=== PATIENT | male | born 1960 | race Caucasian/White ===

== ENCOUNTER 2016-12-25 12:08 | Inpatient (IN) | payer BC ==
[~2016-12-25] VITALS: Ht 190.5 cm; Wt 117.3 kg
[~2016-12-25 12:08] MED LIST: ASPIRIN81 M1 PO; COLCRYS0.6 MG PO; GLIMEPIRIDE1 MG PO; GLUCOPHAGE500 MG PO; LEVOTHYROXINE75 MCG PO; LOSARTAN POTAS100 MG PO; SIMVASTATIN40 MG PO; ZYLOPRIM50 MG PO
[2016-12-25 12:55] LABS: HEMATOCRIT 40.5 % (38.0-50.0); MCH 28.9 PG (29.0-34.0); MCHC 32.8 G/DL (30.0-36.0); MEAN PLAT.VOLUME 10.4 uM^3 (9.0-12.4); PLATELET COUNT 240 K/uL (156-360); RBC DIS.WIDTH-CV 13.4 % (11.8-14.6); RBC DIS.WIDTH-SD 43.3 % (39-53); WHITE BLOOD COUNT 8.5 K/uL (4.1-10.2)
[2016-12-25 13:02] LABS: CHLORIDE 104 mEq/L (99-109); POTASSIUM 4.1 mEq/L (3.7-5.4); SODIUM 139 mEq/L (136-147)
[2016-12-25 13:04] LABS: GLUCOSE 140 mg/dL (70-99)
[2016-12-25 13:05] LABS: ANION GAP 9 MEQ/L (2-14)
[2016-12-25 13:06] LABS: TOTAL BILIRUBIN 0.5 mg/dL (0.0-1.0)
[2016-12-25 13:07] LABS: ALKALINE PHOSPHATASE 54 IU/L (3-129)
[2016-12-25 13:08] LABS: GFR ESTIMATE (CALCULATED) 52 mL/min/
[2016-12-25 13:09] LABS: UREA NITROGEN (BUN) 18 mg/dL (9-23)
[2016-12-25 14:10] LABS: CREATINE KINASE 54 IU/L (1-294); LIPASE 33 U/L (1.0-51.0)
[2016-12-25 14:10] LABS: ADD MIUA? YES; BILIRUBIN NEGATIVE; BLOOD LARGE; GLUCOSE (STRIP) 1000; KETONES TRACE; LEUKOCYTES TRACE; NITRITE NEGATIVE; PROTEIN (STRIP) 300; UROBILINOGEN 0.2 MG/DL (0.2-1.0)
[2016-12-25 14:11] LABS: COLOR RED ((YELLOW))
[2016-12-25 14:17] LABS: RED BLOOD CELLS TNTC /HPF (0-5)
[2016-12-25 14:18] LABS: EPITHELIAL CELLS RARE /HPF
[2016-12-25 14:19] LABS: BACTERIA 1+ /HPF; MUCUS NONE SEEN /LPF; UCUL ADDED? NO
[2016-12-25] MEDS ORDERED: GLUCOPHAGE1000 MG PO (16:56)
[2016-12-25] MEDS ORDERED: FLONASE16 G1 BOTH NARES (16:58)
[2016-12-25] MEDS ORDERED: ZYRTEC10 M2 PO (16:59)
[2016-12-25 23:06] LABS: POINT-OF-CARE METER ID UU13113702
[2016-12-26 07:39] LABS: POINT-OF-CARE METER ID UU13113702
[2016-12-26 08:22] VITALS: BP 127/83
[2016-12-26 08:59] LABS: HEMATOCRIT 33.9 % (38.0-50.0); MCH 29.2 PG (29.0-34.0); MCHC 33.3 G/DL (30.0-36.0); MCV 87.6 FL (86-99); MEAN PLAT.VOLUME 10.3 uM^3 (9.0-12.4); PLATELET COUNT 196 K/uL (156-360); RBC DIS.WIDTH-CV 13.6 % (11.8-14.6); RBC DIS.WIDTH-SD 42.9 % (39-53); RED BLOOD COUNT 3.87 M/uL (4.00-5.50); WHITE BLOOD COUNT 9.9 K/uL (4.1-10.2)
[2016-12-26 09:09] LABS: ANION GAP 8 MEQ/L (2-14); CHLORIDE 107 MEQ/L (99-109); GFR ESTIMATE (CALCULATED) > 59 mL/min/; GLUCOSE 154 mg/dL (70-99); SAMPLE HEMOLYSIS CHECK 0; SAMPLE ICTERIC CHECK 0; SAMPLE LIPEMIA CHECK 0; SODIUM 138 MEQ/L (136-147); UREA NITROGEN (BUN) 18 mg/dL (9-23)
[2016-12-26 11:01] VITALS: BP 114/72
[2016-12-26 11:28] LABS: POINT-OF-CARE METER ID UU13113807
[2016-12-26 15:02] VITALS: BP 116/70
[2016-12-26 15:34] LABS: POINT-OF-CARE METER ID UU13113807
[2016-12-26 15:38] LABS: BACTERIA RARE /HPF; EPITHELIAL CELLS NONE SEEN /HPF; MUCUS TRACE /LPF; RED BLOOD CELLS TNTC /HPF (0-5); WHITE BLOOD CELLS 15-20 /HPF (0-5)
[2016-12-26 20:00] VITALS: BP 104/71
[2016-12-26 21:59] LABS: POINT-OF-CARE METER ID UU13113807
[2016-12-27] VITALS (7 sets, daily range): BP systolic 117–135; BP diastolic 75–91
[2016-12-27 08:46] LABS: POINT-OF-CARE METER ID UU13113807; POINT-OF-CARE USER ID 606021404
[2016-12-27 11:49] LABS: POINT-OF-CARE METER ID UU13113807; POINT-OF-CARE USER ID 606021404
[2016-12-27 17:27] LABS: POINT-OF-CARE METER ID UU13113807; POINT-OF-CARE USER ID 606021404
[2016-12-27 21:42] LABS: POINT-OF-CARE METER ID UU13113807
[2016-12-28 03:30] VITALS: BP 117/75
[2016-12-28 06:24] LABS: EOSINOPHIL (%) 7.6 % (0-5); EOSINOPHIL COUNT 0.5 K/uL (0-0.3); HEMATOCRIT 33.3 % (38.0-50.0); IMMATURE GRANULOCYTE (%) 0.5 % (0.0-0.7); INSTRUMENT ABS NEUTROPHIL CT 3.2 K/uL; LYMPHOCYTE COUNT 1.6 K/uL (1.0-2.8); MCH 28.8 PG (29.0-34.0); MCHC 32.7 G/DL (30.0-36.0); MCV 88.1 FL (86-99); MEAN PLAT.VOLUME 10.2 uM^3 (9.0-12.4); MONOCYTE (%) 10.5 % (3-12); MONOCYTE COUNT 0.6 K/uL (0-0.8); NEUTROPHIL (%) 54.1 % (45-76); NEUTROPHIL COUNT 3.2 K/uL (1.8-6.4); PLATELET COUNT 207 K/uL (156-360); RBC DIS.WIDTH-CV 13.4 % (11.8-14.6); RED BLOOD COUNT 3.78 M/uL (4.00-5.50)
[2016-12-28 06:37] LABS: ANION GAP 6 MEQ/L (2-14); CHLORIDE 106 MEQ/L (99-109); GFR ESTIMATE (CALCULATED) > 59 mL/min/; GLUCOSE 116 mg/dL (70-99); MAGNESIUM 1.5 mg/dl (1.3-2.7); POTASSIUM 4.1 MEQ/L (3.7-5.4); SAMPLE HEMOLYSIS CHECK 0; SAMPLE ICTERIC CHECK 0; SAMPLE LIPEMIA CHECK 0; SODIUM 138 MEQ/L (136-147); UREA NITROGEN (BUN) 13 mg/dL (9-23)
[2016-12-28 06:44] LABS: WHITE BLOOD COUNT 5.9 K/uL (4.1-10.2)
[2016-12-28 08:44] VITALS: BP 132/95
[2016-12-28 11:35] LABS: POINT-OF-CARE METER ID UU13113807; POINT-OF-CARE USER ID 606021404
[2016-12-28 12:00] VITALS: BP 140/90
[2016-12-28 16:56] VITALS: BP 132/92
[2016-12-28 17:07] LABS: POINT-OF-CARE METER ID UU13113807; POINT-OF-CARE USER ID 606021404
[2016-12-28 20:00] VITALS: BP 135/92
[2016-12-28 21:50] LABS: POINT-OF-CARE METER ID UU13113807
[2016-12-29] VITALS: BP 126/78
[2016-12-29 03:59] VITALS: BP 110/67
[2016-12-29 08:00] VITALS: BP 136/75
[2016-12-29 08:45] LABS: POINT-OF-CARE METER ID UU13113807
[2016-12-29 11:59] VITALS: BP 125/87
[2016-12-29 12:04] LABS: POINT-OF-CARE METER ID UU13113807
[2016-12-29 16:00] VITALS: BP 140/80; BP 150/92
[2016-12-29] MEDS ORDERED: CIPROFLOXACIN500 M1 PO ×2 (16:31→16:56)
[2016-12-29] MEDS ORDERED: METRONIDAZOLE500 MG PO ×2 (16:31→16:56)
[2016-12-29 17:24] LABS: POINT-OF-CARE METER ID UU13113807; POINT-OF-CARE USER ID AHSUCEG
[2016-12-29 17:25] VITALS: BP 132/79
== END 2016-12-29 17:33 | disposition home or self-care (01) | DRG 392 ==
LOC: EME 12:08 → EDOF 16:55 → 4SOUTH 16:55
PROVIDERS: Hospitalist; Internal Medicine; Physician Assistant Surgical; Student in an Organized Health Care Education/Training Program
DX: K57.52 Diverticulitis of both small and large intestine without perforation or abscess without bleeding (principal); N17.9 Acute kidney failure, unspecified; E11.65 Type 2 diabetes mellitus with hyperglycemia; N39.0 Urinary tract infection, site not specified; R31.9 Hematuria, unspecified; I10 Essential (primary) hypertension; E78.5 Hyperlipidemia, unspecified; E03.9 Hypothyroidism, unspecified; K86.9 Disease of pancreas, unspecified; M16.0 Bilateral primary osteoarthritis of hip; E66.9 Obesity, unspecified; K76.0 Fatty (change of) liver, not elsewhere classified
CPT/HCPCS: 74177; 80048; 80053; 81003; 81015; 82550; 82565; 82948; 83690; 83735; 84520; 85025; 85027; 88108; 99281; 99285; J0744; J1644; J1815; J1885; J2270; J7030; J7040; S0030

== ENCOUNTER → 2017-01-28 | Outpatient (CLI) | payer BC ==
[~2017-01-28] VITALS: Ht 190.5 cm; Wt 113.4 kg
[~2017-01-28] MED LIST changes: +CIPRO500 MG PO; +CIPROFLOXACIN500 M1 PO; +FLAGYL500 MG PO; +FLONASE16 G1 BOTH NARES; +GLUCOPHAGE1000 MG PO; +METRONIDAZOLE500 MG PO; +ZANTAC150 MG PO; +ZYRTEC10 M2 PO
[2017-01-28 11:12] LABS: POINT-OF-CARE METER ID UU13113694
[2017-01-28 14:00] LABS: POINT-OF-CARE METER ID UU13113675
== END | disposition home or self-care (01) ==
LOC: AMB 10:22
PROVIDERS: Internal Medicine Gastroenterology
PROC: 0DJ08ZZ Inspection of Upper Intestinal Tract, Via Natural or Artificial Opening Endoscopic (ICD-10-PCS; principal; 2017-01-28)
PROC: 0FBG3ZX Excision of Pancreas, Percutaneous Approach, Diagnostic (ICD-10-PCS; 2017-01-28)
DX: K86.2 Cyst of pancreas (principal); K57.32 Diverticulitis of large intestine without perforation or abscess without bleeding; I10 Essential (primary) hypertension; M1A.9XX0 Chronic gout, unspecified, without tophus (tophi); E11.40 Type 2 diabetes mellitus with diabetic neuropathy, unspecified; K21.9 Gastro-esophageal reflux disease without esophagitis; E78.5 Hyperlipidemia, unspecified; E03.9 Hypothyroidism, unspecified; Z68.32 Body mass index [BMI] 32.0-32.9, adult; E66.9 Obesity, unspecified; Z87.891 Personal history of nicotine dependence; Z79.82 Long term (current) use of aspirin; Z79.4 Long term (current) use of insulin; Z88.0 Allergy status to penicillin
CPT/HCPCS: 82948; 88173; 88305; 93005; J0330; J1100; J2405; J3010

== ENCOUNTER 2017-01-31 18:01 | Emergency (ER) | payer BC ==
[~2017-01-31] VITALS: Ht 190.5 cm; Wt 115.6 kg
[~2017-01-31 18:01] MED LIST changes: -CIPRO500 MG PO; -FLAGYL500 MG PO
[2017-01-31 18:39] LABS: HEMATOCRIT 40.7 % (38.0-50.0); MCHC 33.2 G/DL (30.0-36.0); MCV 87.5 FL (86-99); MEAN PLAT.VOLUME 9.6 uM^3 (9.0-12.4); PLATELET COUNT 338 K/uL (156-360); RBC DIS.WIDTH-CV 13.6 % (11.8-14.6); RBC DIS.WIDTH-SD 43.5 % (39-53); RED BLOOD COUNT 4.65 M/uL (4.00-5.50); WHITE BLOOD COUNT 15.3 K/uL (4.1-10.2)
[2017-01-31 18:50] LABS: CHLORIDE 100 mEq/L (99-109); POTASSIUM 4.4 mEq/L (3.7-5.4); SODIUM 137 mEq/L (136-147)
[2017-01-31 18:53] LABS: GLUCOSE 171 mg/dL (70-99)
[2017-01-31 18:54] LABS: ANION GAP 12 MEQ/L (2-14)
[2017-01-31 18:55] LABS: TOTAL BILIRUBIN 0.7 mg/dL (0.0-1.0)
[2017-01-31 18:56] LABS: ALKALINE PHOSPHATASE 68 IU/L (3-129); GFR ESTIMATE (CALCULATED) 48 mL/min/
[2017-01-31 18:57] LABS: UREA NITROGEN (BUN) 22 mg/dL (9-23)
[2017-01-31 22:15] LABS: ADD MIUA? YES; BILIRUBIN NEGATIVE; BLOOD LARGE; COLOR AMBER ((YELLOW)); GLUCOSE (STRIP) 50; KETONES NEGATIVE; LEUKOCYTES NEGATIVE; NITRITE NEGATIVE; PROTEIN (STRIP) >=500; SPECIFIC GRAVITY 1.015 (1.000-1.030); UROBILINOGEN 0.2 MG/DL (0.2-1.0)
[2017-01-31 22:33] LABS: BACTERIA 1+ /HPF; EPITHELIAL CELLS NONE SEEN /HPF; MUCUS NONE SEEN /LPF; RED BLOOD CELLS TNTC /HPF (0-5); UCUL ADDED? YES; WHITE BLOOD CELLS TNTC /HPF (0-5)
[2017-02-01] MEDS ORDERED: CIPRO500 MG PO (00:52)
[2017-02-01] MEDS ORDERED: FLAGYL500 MG PO (00:52)
[2017-02-01 01:10] VITALS: BP 116/78
== END 2017-02-01 01:12 | disposition home or self-care (01) ==
LOC: EME 18:01
DX: K57.32 Diverticulitis of large intestine without perforation or abscess without bleeding (principal); M54.5 Low back pain; Z98.890 Other specified postprocedural states; Q61.01 Congenital single renal cyst; E03.9 Hypothyroidism, unspecified; E78.5 Hyperlipidemia, unspecified; E11.9 Type 2 diabetes mellitus without complications; Z79.84 Long term (current) use of oral hypoglycemic drugs; Z79.82 Long term (current) use of aspirin; Z87.891 Personal history of nicotine dependence
CPT/HCPCS: 74000; 74176; 80053; 81003; 85027; 87086; 99281; 99284; J1885; J7030

== ENCOUNTER 2017-04-07 06:23 | Inpatient (IN) | payer BC ==
[~2017-04-07] VITALS: Ht 193 cm; Wt 112.5 kg
[~2017-04-07 06:23] MED LIST changes: +AMARYL1 MG PO; +CIPRO500 MG PO; +FLAGYL500 MG PO; +LEVO-T100 MCG PO
[2017-04-07 06:50] VITALS: BP 119/92
[2017-04-07 07:13] LABS: POINT-OF-CARE METER ID UU13113694
[2017-04-07 13:43] LABS: POINT-OF-CARE METER ID UU13113675; POINT-OF-CARE USER ID ADMKMM76
[2017-04-07 16:11] VITALS: BP 142/88
[2017-04-07 16:13] LABS: POINT-OF-CARE METER ID UU13113725
[2017-04-07 20:46] VITALS: BP 135/86
[2017-04-07 21:39] LABS: POINT-OF-CARE METER ID UU13113725
[2017-04-08 01:27] VITALS: BP 124/75
[2017-04-08 03:49] VITALS: BP 108/73
[2017-04-08 07:03] LABS: EOSINOPHIL (%) 0.2 % (0-5); HEMATOCRIT 31.9 % (38.0-50.0); IMMATURE GRANULOCYTE (%) 0.4 % (0.0-0.7); INSTRUMENT ABS NEUTROPHIL CT 8.6 K/uL; LYMPHOCYTE COUNT 0.9 K/uL (1.0-2.8); MCH 29.1 PG (29.0-34.0); MCHC 33.2 G/DL (30.0-36.0); MCV 87.6 FL (86-99); MEAN PLAT.VOLUME 10.1 uM^3 (9.0-12.4); MONOCYTE (%) 6.8 % (3-12); MONOCYTE COUNT 0.7 K/uL (0-0.8); NEUTROPHIL (%) 83.4 % (45-76); NEUTROPHIL COUNT 8.6 K/uL (1.8-6.4); PLATELET COUNT 250 K/uL (156-360); RBC DIS.WIDTH-CV 13.5 % (11.8-14.6); RBC DIS.WIDTH-SD 43.3 % (39-53); RED BLOOD COUNT 3.64 M/uL (4.00-5.50); WHITE BLOOD COUNT 10.3 K/uL (4.1-10.2)
[2017-04-08 07:08] VITALS: BP 145/87
[2017-04-08 07:24] LABS: ALKALINE PHOSPHATASE 49 IU/L (3-129); ANION GAP 8 MEQ/L (2-14); CHLORIDE 102 MEQ/L (99-109); GFR ESTIMATE (CALCULATED) > 59 mL/min/; GLUCOSE 169 mg/dL (70-99); MAGNESIUM 1.4 mg/dl (1.3-2.7); POTASSIUM 3.9 MEQ/L (3.7-5.4); SAMPLE HEMOLYSIS CHECK 0; SAMPLE ICTERIC CHECK 0; SAMPLE LIPEMIA CHECK 0; SODIUM 136 MEQ/L (136-147); TOTAL BILIRUBIN 0.7 MG/DL (0.0-1.0); UREA NITROGEN (BUN) 10 mg/dL (9-23)
[2017-04-08 11:29] LABS: POINT-OF-CARE METER ID UU13113725
[2017-04-08 16:35] VITALS: BP 122/77
[2017-04-08 19:20] VITALS: BP 151/81
[2017-04-08 20:48] LABS: POINT-OF-CARE METER ID UU13113725
[2017-04-08 23:10] VITALS: BP 129/85
[2017-04-09 03:23] VITALS: BP 141/81
[2017-04-09 05:43] LABS: POINT-OF-CARE METER ID UU13113725
[2017-04-09 07:00] VITALS: BP 146/90
[2017-04-09] MEDS ORDERED: HYDROCODON-ACE1 EAC7 PO (09:57)
[2017-04-09] MEDS ORDERED: COLACE100 MG PO (09:57)
[2017-04-09 10:45] LABS: ADD MIUA? YES; BILIRUBIN NEGATIVE; BLOOD LARGE; COLOR YELLOW ((YELLOW)); GLUCOSE (STRIP) 150; KETONES NEGATIVE; LEUKOCYTES NEGATIVE; NITRITE NEGATIVE; PROTEIN (STRIP) 30; SPECIFIC GRAVITY 1.002 (1.000-1.030); UROBILINOGEN 0.2 MG/DL (0.2-1.0)
[2017-04-09 10:49] LABS: EOSINOPHIL (%) 0.2 % (0-5); HEMATOCRIT 32.7 % (38.0-50.0); IMMATURE GRANULOCYTE (%) 0.5 % (0.0-0.7); IMMATURE GRANULOCYTE COUNT 0.1 K/uL; INSTRUMENT ABS NEUTROPHIL CT 14.2 K/uL; LYMPHOCYTE COUNT 1.4 K/uL (1.0-2.8); MCH 29.8 PG (29.0-34.0); MCHC 33.9 G/DL (30.0-36.0); MCV 87.9 FL (86-99); MEAN PLAT.VOLUME 10.1 uM^3 (9.0-12.4); MONOCYTE (%) 4.7 % (3-12); MONOCYTE COUNT 0.8 K/uL (0-0.8); NEUTROPHIL (%) 86.1 % (45-76); NEUTROPHIL COUNT 14.2 K/uL (1.8-6.4); PLATELET COUNT 269 K/uL (156-360); RBC DIS.WIDTH-CV 13.7 % (11.8-14.6); RBC DIS.WIDTH-SD 44.1 % (39-53); RED BLOOD COUNT 3.72 M/uL (4.00-5.50); WHITE BLOOD COUNT 16.5 K/uL (4.1-10.2)
[2017-04-09 10:52] LABS: ALKALINE PHOSPHATASE 55 IU/L (3-129); ANION GAP 9 MEQ/L (2-14); CHLORIDE 98 MEQ/L (99-109); GFR ESTIMATE (CALCULATED) > 59 mL/min/; MAGNESIUM 1.6 mg/dl (1.3-2.7); POTASSIUM 3.6 MEQ/L (3.7-5.4); SAMPLE HEMOLYSIS CHECK 0; SAMPLE ICTERIC CHECK 0; SAMPLE LIPEMIA CHECK 0; SODIUM 136 MEQ/L (136-147); TOTAL BILIRUBIN 0.8 MG/DL (0.0-1.0); UREA NITROGEN (BUN) 11 mg/dL (9-23)
[2017-04-09 10:54] LABS: BACTERIA 1+ /HPF; EPITHELIAL CELLS NONE SEEN /HPF; MUCUS TRACE /LPF; RED BLOOD CELLS 0-5 /HPF (0-5); UCUL ADDED? NO; WHITE BLOOD CELLS 0-5 /HPF (0-5)
[2017-04-09 11:04] LABS: GLUCOSE 109 mg/dL (70-99)
[2017-04-09 17:25] VITALS: BP 156/84
[2017-04-09 18:56] LABS: BASOPHIL COUNT 0.1 K/uL (0-0.1); EOSINOPHIL COUNT 0.2 K/uL (0-0.3); HEMATOCRIT 29.5 % (38.0-50.0); IMMATURE GRANULOCYTE (%) 0.5 % (0.0-0.7); IMMATURE GRANULOCYTE COUNT 0.1 K/uL; LYMPHOCYTE COUNT 1.9 K/uL (1.0-2.8); MCH 30.3 PG (29.0-34.0); MCHC 35.3 G/DL (30.0-36.0); MONOCYTE (%) 6.3 % (3-12); NEUTROPHIL (%) 79.9 % (45-76); PLATELET COUNT 253 K/uL (156-360); RBC DIS.WIDTH-CV 13.5 % (11.8-14.6); RBC DIS.WIDTH-SD 42.1 % (39-53); RED BLOOD COUNT 3.43 M/uL (4.00-5.50); WHITE BLOOD COUNT 16.2 K/uL (4.1-10.2)
[2017-04-09 22:23] VITALS: BP 135/83
[2017-04-10 05:53] LABS: POINT-OF-CARE METER ID UU13113725
[2017-04-10 06:10] LABS: EOSINOPHIL COUNT 0.3 K/uL (0-0.3); HEMATOCRIT 27.5 % (38.0-50.0); IMMATURE GRANULOCYTE (%) 0.5 % (0.0-0.7); IMMATURE GRANULOCYTE COUNT 0.1 K/uL; INSTRUMENT ABS NEUTROPHIL CT 10.6 K/uL; LYMPHOCYTE COUNT 1.3 K/uL (1.0-2.8); MCH 30.1 PG (29.0-34.0); MCHC 34.5 G/DL (30.0-36.0); MEAN PLAT.VOLUME 10.2 uM^3 (9.0-12.4); MONOCYTE (%) 6.7 % (3-12); MONOCYTE COUNT 0.9 K/uL (0-0.8); NEUTROPHIL (%) 80.5 % (45-76); NEUTROPHIL COUNT 10.6 K/uL (1.8-6.4); PLATELET COUNT 260 K/uL (156-360); RBC DIS.WIDTH-CV 13.4 % (11.8-14.6); RBC DIS.WIDTH-SD 42.5 % (39-53); RED BLOOD COUNT 3.16 M/uL (4.00-5.50); WHITE BLOOD COUNT 13.2 K/uL (4.1-10.2)
[2017-04-10 06:43] LABS: ALKALINE PHOSPHATASE 51 IU/L (3-129); ANION GAP 8 MEQ/L (2-14); CHLORIDE 101 MEQ/L (99-109); GFR ESTIMATE (CALCULATED) > 59 mL/min/; GLUCOSE 122 mg/dL (70-99); MAGNESIUM 1.5 mg/dl (1.3-2.7); POTASSIUM 3.7 MEQ/L (3.7-5.4); SAMPLE HEMOLYSIS CHECK 0; SAMPLE ICTERIC CHECK 0; SAMPLE LIPEMIA CHECK 0; SODIUM 137 MEQ/L (136-147); UREA NITROGEN (BUN) 12 mg/dL (9-23)
[2017-04-10 06:44] LABS: TOTAL BILIRUBIN 0.6 MG/DL (0.0-1.0)
[2017-04-10 07:56] VITALS: BP 136/87
[2017-04-10 15:39] VITALS: BP 120/81
[2017-04-10 15:45] LABS: POINT-OF-CARE METER ID UU13113725
[2017-04-10 22:22] VITALS: BP 137/83
[2017-04-11 06:37] VITALS: BP 146/94
[2017-04-11 07:09] LABS: EOSINOPHIL (%) 5.6 % (0-5); EOSINOPHIL COUNT 0.6 K/uL (0-0.3); HEMATOCRIT 28.8 % (38.0-50.0); IMMATURE GRANULOCYTE (%) 0.7 % (0.0-0.7); IMMATURE GRANULOCYTE COUNT 0.1 K/uL; INSTRUMENT ABS NEUTROPHIL CT 7.6 K/uL; LYMPHOCYTE COUNT 1.2 K/uL (1.0-2.8); MCH 28.8 PG (29.0-34.0); MCV 87.3 FL (86-99); MONOCYTE (%) 8.6 % (3-12); MONOCYTE COUNT 0.9 K/uL (0-0.8); NEUTROPHIL (%) 73.6 % (45-76); NEUTROPHIL COUNT 7.6 K/uL (1.8-6.4); PLATELET COUNT 307 K/uL (156-360); RBC DIS.WIDTH-CV 13.4 % (11.8-14.6); RBC DIS.WIDTH-SD 42.6 % (39-53); WHITE BLOOD COUNT 10.3 K/uL (4.1-10.2)
[2017-04-11 07:36] LABS: ANION GAP 10 MEQ/L (2-14); CHLORIDE 103 MEQ/L (99-109); GFR ESTIMATE (CALCULATED) > 59 mL/min/; MAGNESIUM 1.5 mg/dl (1.3-2.7); POTASSIUM 3.5 MEQ/L (3.7-5.4); SAMPLE HEMOLYSIS CHECK 0; SAMPLE ICTERIC CHECK 0; SAMPLE LIPEMIA CHECK 0; SODIUM 140 MEQ/L (136-147); UREA NITROGEN (BUN) 11 mg/dL (9-23)
[2017-04-11 07:40] LABS: GLUCOSE 91 mg/dL (70-99)
[2017-04-11 15:14] VITALS: BP 140/88
[2017-04-11 16:02] LABS: POINT-OF-CARE METER ID UU13113725
[2017-04-11 20:30] VITALS: BP 148/62
[2017-04-11 20:54] LABS: POINT-OF-CARE METER ID UU13113725
[2017-04-11 22:47] VITALS: BP 124/65
[2017-04-12 02:35] VITALS: BP 119/80
[2017-04-12 05:35] LABS: POINT-OF-CARE METER ID UU13113725
[2017-04-12 06:44] VITALS: BP 141/90
[2017-04-12 11:01] VITALS: BP 154/95
[2017-04-12 15:00] VITALS: BP 128/87
[2017-04-12 19:02] VITALS: BP 132/87
[2017-04-12 23:00] VITALS: BP 141/93
[2017-04-13 06:05] LABS: POINT-OF-CARE METER ID UU13113725
[2017-04-13 06:55] VITALS: BP 140/88
[2017-04-13 10:27] LABS: HEMATOCRIT 28.6 % (38.0-50.0); MCH 29.4 PG (29.0-34.0); MCHC 33.9 G/DL (30.0-36.0); MCV 86.7 FL (86-99); MEAN PLAT.VOLUME 9.1 uM^3 (9.0-12.4); PLATELET COUNT 341 K/uL (156-360); RBC DIS.WIDTH-CV 13.2 % (11.8-14.6); RBC DIS.WIDTH-SD 42.4 % (39-53); WHITE BLOOD COUNT 7.5 K/uL (4.1-10.2)
[2017-04-13 11:02] LABS: ANION GAP 9 MEQ/L (2-14); CHLORIDE 104 MEQ/L (99-109); GFR ESTIMATE (CALCULATED) 56 mL/min/; GLUCOSE 130 mg/dL (70-99); POTASSIUM 3.4 MEQ/L (3.7-5.4); SAMPLE HEMOLYSIS CHECK 0; SAMPLE ICTERIC CHECK 0; SAMPLE LIPEMIA CHECK 0; SODIUM 141 MEQ/L (136-147); UREA NITROGEN (BUN) 16 mg/dL (9-23)
[2017-04-13 11:04] LABS: POC NON-PRINT COM 1 ND
[2017-04-13] MEDS ORDERED: NORCO 5/3251 TABLET PO (11:18)
[2017-04-13 11:21] LABS: POINT-OF-CARE METER ID UU13113725
== END 2017-04-13 14:38 | disposition home or self-care (01) | DRG 331 ==
LOC: 2SOUTH 06:23 → SDC 13:48 → EDSTATUS 13:48 → 2SOUTH 13:49 → 5EAST 15:14 → 2SOUTH 15:25 → 5EAST 04-13 14:38
PROVIDERS: Surgery
DX: K57.32 Diverticulitis of large intestine without perforation or abscess without bleeding (principal); N18.3 Chronic kidney disease, stage 3 (moderate); K63.9 Disease of intestine, unspecified; E78.5 Hyperlipidemia, unspecified; E11.40 Type 2 diabetes mellitus with diabetic neuropathy, unspecified; M51.36 Other intervertebral disc degeneration, lumbar region; E03.9 Hypothyroidism, unspecified; E11.22 Type 2 diabetes mellitus with diabetic chronic kidney disease; I12.9 Hypertensive chronic kidney disease with stage 1 through stage 4 chronic kidney disease, or unspecified chronic kidney disease; G89.29 Other chronic pain; K21.9 Gastro-esophageal reflux disease without esophagitis; R31.0 Gross hematuria; L50.3 Dermatographic urticaria; M54.17 Radiculopathy, lumbosacral region; M77.12 Lateral epicondylitis, left elbow; H69.80 Other specified disorders of Eustachian tube, unspecified ear; L30.9 Dermatitis, unspecified; K42.9 Umbilical hernia without obstruction or gangrene; J30.9 Allergic rhinitis, unspecified; K76.0 Fatty (change of) liver, not elsewhere classified; R31.9 Hematuria, unspecified; L50.9 Urticaria, unspecified; M65.841 Other synovitis and tenosynovitis, right hand; M16.0 Bilateral primary osteoarthritis of hip; E66.9 Obesity, unspecified; M1A.9XX0 Chronic gout, unspecified, without tophus (tophi); E11.21 Type 2 diabetes mellitus with diabetic nephropathy; I34.1 Nonrheumatic mitral (valve) prolapse; Z68.30 Body mass index [BMI] 30.0-30.9, adult; Z86.010 Personal history of colon polyps; Z87.891 Personal history of nicotine dependence; Z79.84 Long term (current) use of oral hypoglycemic drugs; Z88.0 Allergy status to penicillin; Z82.49 Family history of ischemic heart disease and other diseases of the circulatory system; Z83.3 Family history of diabetes mellitus; Z82.61 Family history of arthritis
CPT/HCPCS: 71020; 76770; 80048; 80053; 81003; 82272; 82948; 83735; 84100; 85025; 85025 91; 85027; 88305; 88307; J0330; J0744; J1170; J1650; J1815; J2405; J2710; J2765; J3010; J7040; J7120; S0030

== ENCOUNTER 2017-05-02 15:53 | Inpatient (IN) | payer BC ==
[~2017-05-02] VITALS: Ht 190.5 cm; Wt 121.0 kg
[~2017-05-02 15:53] MED LIST changes: +COLACE100 MG PO; +HYDROCODON-ACE1 EAC7 PO; +NORCO 5/3251 TABLET PO
[2017-05-02 17:21] LABS: HEMATOCRIT 31.3 % (38.0-50.0); MCH 27.9 PG (29.0-34.0); MCHC 33.2 G/DL (30.0-36.0); MCV 83.9 FL (86-99); PLATELET COUNT 413 K/uL (156-360); RBC DIS.WIDTH-CV 13.1 % (11.8-14.6); RBC DIS.WIDTH-SD 40.4 % (39-53); RED BLOOD COUNT 3.73 M/uL (4.00-5.50); WHITE BLOOD COUNT 12.6 K/uL (4.1-10.2)
[2017-05-02 17:37] LABS: CHLORIDE 101 mEq/L (99-109); POTASSIUM 4.2 mEq/L (3.7-5.4); SODIUM 133 mEq/L (136-147)
[2017-05-02 17:38] LABS: GLUCOSE 119 mg/dL (70-99)
[2017-05-02 17:40] LABS: ANION GAP 12 MEQ/L (2-14)
[2017-05-02 17:42] LABS: GFR ESTIMATE (CALCULATED) 33 mL/min/
[2017-05-02 17:43] LABS: UREA NITROGEN (BUN) 23 mg/dL (9-23)
[2017-05-02] MEDS ORDERED: BENZONATATE100 MG PO (22:55)
[2017-05-02] MEDS ORDERED: VENTOLIN HFA18 GM IH (22:56)
[2017-05-02 23:38] LABS: ADD MIUA? YES; BILIRUBIN NEGATIVE; BLOOD LARGE; COLOR AMBER ((YELLOW)); GLUCOSE (STRIP) NEGATIVE; KETONES NEGATIVE; LEUKOCYTES NEGATIVE; NITRITE NEGATIVE; PROTEIN (STRIP) 100; SPECIFIC GRAVITY 1.021 (1.000-1.030); UROBILINOGEN 0.2 MG/DL (0.2-1.0)
[2017-05-02 23:47] VITALS: BP 131/70
[2017-05-02 23:54] LABS: AMORPHOUS URATES CRYSTALS 2+; BACTERIA 2+ /HPF; CASTS PRESENT /LPF; CRYSTALS PRESENT; EPITHELIAL CELLS 1+ /HPF; FINE GRANULAR CASTS 0-5 /LPF; MUCUS 2+ /LPF; RED BLOOD CELLS 20-30 /HPF (0-5); UCUL ADDED? YES
[2017-05-03] VITALS: BP 131/70
[2017-05-03 00:27] LABS: POINT-OF-CARE METER ID UU13113725
[2017-05-03 03:51] VITALS: BP 97/61
[2017-05-03 06:13] LABS: POINT-OF-CARE METER ID UU13113725
[2017-05-03 07:46] VITALS: BP 96/54
[2017-05-03 09:54] LABS: ANION GAP 11 MEQ/L (2-14); CHLORIDE 105 MEQ/L (99-109); MAGNESIUM 1.5 mg/dl (1.3-2.7); POTASSIUM 3.9 MEQ/L (3.7-5.4); SAMPLE HEMOLYSIS CHECK 0; SAMPLE ICTERIC CHECK 0; SAMPLE LIPEMIA CHECK 0; SODIUM 138 MEQ/L (136-147); TOTAL BILIRUBIN 0.6 MG/DL (0.0-1.0)
[2017-05-03 09:59] LABS: ALKALINE PHOSPHATASE 62 IU/L (3-129); GFR ESTIMATE (CALCULATED) 37 mL/min/; GLUCOSE 92 mg/dL (70-99); UREA NITROGEN (BUN) 24 mg/dL (9-23)
[2017-05-03 10:07] LABS: EOSINOPHIL (%) 1.8 % (0-5); EOSINOPHIL COUNT 0.2 K/uL (0-0.3); HEMATOCRIT 25.1 % (38.0-50.0); IMMATURE GRANULOCYTE (%) 2.4 % (0.0-0.7); IMMATURE GRANULOCYTE COUNT 0.2 K/uL; INSTRUMENT ABS NEUTROPHIL CT 6.9 K/uL; LYMPHOCYTE COUNT 1.2 K/uL (1.0-2.8); MCH 28.6 PG (29.0-34.0); MCHC 33.5 G/DL (30.0-36.0); MCV 85.4 FL (86-99); MONOCYTE (%) 13.9 % (3-12); MONOCYTE COUNT 1.4 K/uL (0-0.8); NEUTROPHIL (%) 69.2 % (45-76); NEUTROPHIL COUNT 6.9 K/uL (1.8-6.4); RBC DIS.WIDTH-CV 13.3 % (11.8-14.6); RBC DIS.WIDTH-SD 41.5 % (39-53)
[2017-05-03 10:09] LABS: RED BLOOD COUNT 2.94 M/uL (4.00-5.50)
[2017-05-03 10:12] LABS: MEAN PLAT.VOLUME 9.2 uM^3 (9.0-12.4); PLAT.SUFFICIENCY ADEQUATE
[2017-05-03 10:20] LABS: PLATELET COUNT 278 K/uL (156-360)
[2017-05-03 11:39] LABS: POINT-OF-CARE METER ID UU13113725
[2017-05-03 12:58] VITALS: BP 101/78
[2017-05-03 17:27] LABS: POINT-OF-CARE METER ID UU13113675
[2017-05-03 19:43] LABS: HEMATOCRIT 26.6 % (38.0-50.0); MCV 88.1 FL (86-99)
[2017-05-03 22:15] VITALS: BP 127/71
[2017-05-03 23:00] VITALS: BP 100/60
[2017-05-03 23:22] LABS: METH RESISTANT S AUREUS PCR NEGATIVE (NEGATIVE)
[2017-05-03 23:24] LABS: PROBE CHECK PASS; SPECIMEN PROCESSING CONTROL PASS
[2017-05-03 23:39] LABS: TROP-I INTERPRETATION INDETERMINATE; TROPONIN-I 0.47 ng/mL (0.0-0.30)
[2017-05-03 23:54] LABS: POINT-OF-CARE METER ID UU14208751
[2017-05-04] VITALS (13 sets, daily range): BP systolic 79–121; BP diastolic 43–82
[2017-05-04 00:48] LABS: BASE EXCESS -8.1 mEq/L (-3 to +3); BICARBONATE 15.7 mEq/L (22-26); CARBOXY HGB 1.7 % (0-5); METHEMOGLOBIN 1.5 % (0-1.5); PCO2 26 mm Hg (35-45); PO2 82 mm Hg (80-100); pH 7.39 (7.35-7.45)
[2017-05-04 00:49] LABS: COMMENTS - BLOOD GASES C+; DEVICE NC; O2 FLOW 3.5 L/MIN; SITE RR ALINE
[2017-05-04 02:53] LABS: CARBON DIOXIDE (BICARBONATE) 16.2 MEQ/L (20-31)
[2017-05-04 05:42] LABS: TROP-I INTERPRETATION INDETERMINATE; TROPONIN-I 0.35 ng/mL (0.0-0.30)
[2017-05-04 05:43] LABS: MCH 29.1 PG (29.0-34.0); MCHC 33.7 G/DL (30.0-36.0); MCV 86.3 FL (86-99); MEAN PLAT.VOLUME 9.3 uM^3 (9.0-12.4); PLATELET COUNT 301 K/uL (156-360); RBC DIS.WIDTH-CV 13.7 % (11.8-14.6); RBC DIS.WIDTH-SD 43.5 % (39-53); RED BLOOD COUNT 3.13 M/uL (4.00-5.50); WHITE BLOOD COUNT 11.5 K/uL (4.1-10.2)
[2017-05-04 06:30] LABS: BASE EXCESS -8.2 mEq/L (-3 to +3); BICARBONATE 16.9 mEq/L (22-26); METHEMOGLOBIN 2.1 % (0-1.5); PCO2 32 mm Hg (35-45); PO2 31 mm Hg (80-100); pH 7.33 (7.35-7.45)
[2017-05-04 06:31] LABS: COMMENTS - BLOOD GASES C+; DEVICE NC; SITE CENTLINE
[2017-05-04 06:36] LABS: ANION GAP 8 MEQ/L (2-14); CHLORIDE 112 MEQ/L (99-109); GFR ESTIMATE (CALCULATED) 35 mL/min/; SAMPLE HEMOLYSIS CHECK 0; SAMPLE ICTERIC CHECK 0; SAMPLE LIPEMIA CHECK 0; SODIUM 137 MEQ/L (136-147); UREA NITROGEN (BUN) 21 mg/dL (9-23)
[2017-05-04 06:40] LABS: GLUCOSE 170 mg/dL (70-99); POTASSIUM 4.7 MEQ/L (3.7-5.4)
[2017-05-04 07:57] LABS: POINT-OF-CARE METER ID UU13113731
[2017-05-04 12:06] LABS: POINT-OF-CARE METER ID UU13113731
[2017-05-04 14:41] LABS: ANION GAP 8 MEQ/L (2-14); CHLORIDE 111 MEQ/L (99-109); GFR ESTIMATE (CALCULATED) 37 mL/min/; GLUCOSE 200 mg/dL (70-99); POTASSIUM 4.7 MEQ/L (3.7-5.4); SAMPLE HEMOLYSIS CHECK 0; SAMPLE ICTERIC CHECK 0; SAMPLE LIPEMIA CHECK 0; SODIUM 134 MEQ/L (136-147); UREA NITROGEN (BUN) 24 mg/dL (9-23)
[2017-05-04 14:43] LABS: TROP-I INTERPRETATION NEGATIVE; TROPONIN-I 0.15 ng/mL (0.0-0.30)
[2017-05-04 17:23] LABS: POINT-OF-CARE METER ID UU14174217
[2017-05-04 21:51] LABS: POINT-OF-CARE METER ID UU14208751
[2017-05-05] VITALS (19 sets, daily range): BP systolic 82–148; BP diastolic 47–96
[2017-05-05 08:29] LABS: POINT-OF-CARE METER ID UU14162636
[2017-05-05 09:45] LABS: HEMATOCRIT 26.8 % (38.0-50.0); MCH 27.4 PG (29.0-34.0); MCHC 31.3 G/DL (30.0-36.0); MCV 87.3 FL (86-99); MEAN PLAT.VOLUME 9.1 uM^3 (9.0-12.4); PLATELET COUNT 364 K/uL (156-360); RBC DIS.WIDTH-SD 45.1 % (39-53); RED BLOOD COUNT 3.07 M/uL (4.00-5.50); WHITE BLOOD COUNT 19.3 K/uL (4.1-10.2)
[2017-05-05 10:09] LABS: ALKALINE PHOSPHATASE 49 IU/L (3-129); ANION GAP 10 MEQ/L (2-14); CHLORIDE 109 MEQ/L (99-109); GFR ESTIMATE (CALCULATED) 33 mL/min/; GLUCOSE 147 mg/dL (70-99); POTASSIUM 4.7 MEQ/L (3.7-5.4); SAMPLE HEMOLYSIS CHECK 0; SAMPLE ICTERIC CHECK 0; SAMPLE LIPEMIA CHECK 0; SODIUM 136 MEQ/L (136-147); UREA NITROGEN (BUN) 33 mg/dL (9-23)
[2017-05-05 10:13] LABS: MAGNESIUM 1.9 mg/dl (1.3-2.7); TOTAL BILIRUBIN 1.2 MG/DL (0.0-1.0)
[2017-05-05 10:26] LABS: EOSINOPHIL (%) 0.1 % (0-5); IMMATURE GRANULOCYTE (%) 2.4 % (0.0-0.7); IMMATURE GRANULOCYTE COUNT 0.5 K/uL; INSTRUMENT ABS NEUTROPHIL CT 17.6 K/uL; LYMPHOCYTE COUNT 0.7 K/uL (1.0-2.8); MONOCYTE (%) 2.5 % (3-12); MONOCYTE COUNT 0.5 K/uL (0-0.8); NEUTROPHIL (%) 91.3 % (45-76); NEUTROPHIL COUNT 17.6 K/uL (1.8-6.4)
[2017-05-05 11:37] LABS: POINT-OF-CARE METER ID UU14162636
[2017-05-05 16:07] LABS: POINT-OF-CARE METER ID UU14162636
[2017-05-05 21:03] LABS: ADD MIUA? YES; BILIRUBIN NEGATIVE; BLOOD LARGE; COLOR AMBER ((YELLOW)); GLUCOSE (STRIP) 50; KETONES NEGATIVE; LEUKOCYTES TRACE; NITRITE NEGATIVE; PROTEIN (STRIP) 100; SPECIFIC GRAVITY 1.017 (1.000-1.030); UROBILINOGEN 0.2 MG/DL (0.2-1.0)
[2017-05-05 21:29] LABS: BACTERIA RARE /HPF; EPITHELIAL CELLS RARE /HPF; HYALINE CASTS 0-5 /LPF; MUCUS TRACE /LPF; RED BLOOD CELLS 30-40 /HPF (0-5); UNCLASSIFIED CRYSTALS 1+ /HPF; WHITE BLOOD CELLS 0-5 /HPF (0-5)
[2017-05-05 22:20] LABS: POINT-OF-CARE METER ID UU14162636
[2017-05-06] VITALS (7 sets, daily range): BP systolic 120–154; BP diastolic 83–103
[2017-05-06 09:30] LABS: EOSINOPHIL (%) 0.3 % (0-5); IMMATURE GRANULOCYTE (%) 4.4 % (0.0-0.7); IMMATURE GRANULOCYTE COUNT 0.6 K/uL; INSTRUMENT ABS NEUTROPHIL CT 11.7 K/uL; LYMPHOCYTE COUNT 0.7 K/uL (1.0-2.8); MCH 28.7 PG (29.0-34.0); MCV 86.8 FL (86-99); MONOCYTE (%) 3.7 % (3-12); MONOCYTE COUNT 0.5 K/uL (0-0.8); NEUTROPHIL (%) 86.5 % (45-76); NEUTROPHIL COUNT 11.7 K/uL (1.8-6.4); PLATELET COUNT 283 K/uL (156-360); RBC DIS.WIDTH-CV 14.4 % (11.8-14.6); RBC DIS.WIDTH-SD 45.5 % (39-53); RED BLOOD COUNT 2.65 M/uL (4.00-5.50); WHITE BLOOD COUNT 13.5 K/uL (4.1-10.2)
[2017-05-06 09:45] LABS: POINT-OF-CARE METER ID UU13113748
[2017-05-06 10:09] LABS: ALKALINE PHOSPHATASE 55 IU/L (3-129); ANION GAP 11 MEQ/L (2-14); CHLORIDE 109 MEQ/L (99-109); DIRECT BILIRUBIN 1.1 mg/dL (0.0-0.3); GLUCOSE 128 mg/dL (70-99); POTASSIUM 4.2 MEQ/L (3.7-5.4); SAMPLE HEMOLYSIS CHECK 0; SAMPLE ICTERIC CHECK 0; SAMPLE LIPEMIA CHECK 0; SODIUM 138 MEQ/L (136-147); UREA NITROGEN (BUN) 28 mg/dL (9-23)
[2017-05-06 10:13] LABS: GFR ESTIMATE (CALCULATED) 45 mL/min/; TOTAL BILIRUBIN 1.6 MG/DL (0.0-1.0)
[2017-05-06 12:04] LABS: POINT-OF-CARE METER ID UU13113748
[2017-05-06 18:25] LABS: POINT-OF-CARE METER ID UU13113731
[2017-05-06 21:29] LABS: ANION GAP 9 MEQ/L (2-14); CHLORIDE 110 MEQ/L (99-109); POTASSIUM 3.9 MEQ/L (3.7-5.4); SAMPLE HEMOLYSIS CHECK 0; SAMPLE ICTERIC CHECK 0; SAMPLE LIPEMIA CHECK 0; SODIUM 136 MEQ/L (136-147)
[2017-05-06 21:35] LABS: GFR ESTIMATE (CALCULATED) 48 mL/min/; GLUCOSE 102 mg/dL (70-99); UREA NITROGEN (BUN) 26 mg/dL (9-23)
[2017-05-06 22:10] LABS: POINT-OF-CARE METER ID UU13113731
[2017-05-07] VITALS (8 sets, daily range): BP systolic 106–134; BP diastolic 67–92
[2017-05-07 04:45] LABS: HEMATOCRIT 24.7 % (38.0-50.0); MCH 27.9 PG (29.0-34.0); MCHC 33.2 G/DL (30.0-36.0); MEAN PLAT.VOLUME 9.2 uM^3 (9.0-12.4); PLATELET COUNT 322 K/uL (156-360); RBC DIS.WIDTH-CV 14.1 % (11.8-14.6); RBC DIS.WIDTH-SD 43.1 % (39-53); RED BLOOD COUNT 2.94 M/uL (4.00-5.50); WHITE BLOOD COUNT 13.4 K/uL (4.1-10.2)
[2017-05-07 07:42] LABS: EOSINOPHIL (%) 1.4 % (0-5); EOSINOPHIL COUNT 0.2 K/uL (0-0.3); HEMATOLOGY COMMENT 1 SMEAR COMPATIBLE; IMMATURE GRANULOCYTE (%) 3.9 % (0.0-0.7); IMMATURE GRANULOCYTE COUNT 0.5 K/uL; MONOCYTE (%) 5.7 % (3-12); MONOCYTE COUNT 0.8 K/uL (0-0.8); NEUTROPHIL (%) 81.8 % (45-76)
[2017-05-07 08:30] LABS: ANION GAP 9 MEQ/L (2-14); CHLORIDE 107 MEQ/L (99-109); GFR ESTIMATE (CALCULATED) 45 mL/min/; GLUCOSE 94 mg/dL (70-99); MAGNESIUM 1.7 mg/dl (1.3-2.7); POTASSIUM 3.7 MEQ/L (3.7-5.4); SAMPLE HEMOLYSIS CHECK 0; SAMPLE ICTERIC CHECK 0; SAMPLE LIPEMIA CHECK 0; SODIUM 135 MEQ/L (136-147); UREA NITROGEN (BUN) 25 mg/dL (9-23)
[2017-05-07 08:37] LABS: ALKALINE PHOSPHATASE 86 IU/L (3-129); TOTAL BILIRUBIN 1.2 MG/DL (0.0-1.0)
[2017-05-07 09:11] LABS: POINT-OF-CARE METER ID UU13113731
[2017-05-07 11:53] LABS: POINT-OF-CARE METER ID UU13113731
[2017-05-07 15:19] LABS: POINT-OF-CARE METER ID UU13113731
[2017-05-07 22:05] LABS: POINT-OF-CARE METER ID UU13113731
[2017-05-08] VITALS: BP 122/83
[2017-05-08 02:00] VITALS: BP 122/77
[2017-05-08 04:00] VITALS: BP 125/90
[2017-05-08 06:00] VITALS: BP 101/70
[2017-05-08 06:01] LABS: HEMATOCRIT 24.8 % (38.0-50.0); MCH 27.6 PG (29.0-34.0); MCHC 32.7 G/DL (30.0-36.0); MCV 84.4 FL (86-99); MEAN PLAT.VOLUME 9.5 uM^3 (9.0-12.4); PLATELET COUNT 346 K/uL (156-360); RBC DIS.WIDTH-CV 14.4 % (11.8-14.6); RBC DIS.WIDTH-SD 44.6 % (39-53); RED BLOOD COUNT 2.94 M/uL (4.00-5.50); WHITE BLOOD COUNT 12.7 K/uL (4.1-10.2)
[2017-05-08 06:32] LABS: ALKALINE PHOSPHATASE 80 IU/L (3-129); ANION GAP 11 MEQ/L (2-14); CHLORIDE 106 MEQ/L (99-109); GFR ESTIMATE (CALCULATED) 52 mL/min/; GLUCOSE 132 mg/dL (70-99); MAGNESIUM 1.5 mg/dl (1.3-2.7); POTASSIUM 3.4 MEQ/L (3.7-5.4); SAMPLE HEMOLYSIS CHECK 0; SAMPLE ICTERIC CHECK 0; SAMPLE LIPEMIA CHECK 0; SODIUM 137 MEQ/L (136-147); UREA NITROGEN (BUN) 26 mg/dL (9-23)
[2017-05-08 06:59] LABS: TOTAL BILIRUBIN 0.8 MG/DL (0.0-1.0)
[2017-05-08 07:13] LABS: ABS NEUTROPHIL COUNT 9.7; EOSINOPHIL ABS CT 0.1; INSTRUMENT ABS NEUTROPHIL CT 9.2 K/uL; PLAT.SUFFICIENCY ADEQUATE
[2017-05-08 08:00] VITALS: BP 119/79
[2017-05-08 13:00] VITALS: BP 112/75
[2017-05-08 13:20] LABS: POINT-OF-CARE METER ID UU13113731
[2017-05-08 18:18] LABS: POINT-OF-CARE METER ID UU13113731
[2017-05-08 20:43] LABS: POINT-OF-CARE METER ID UU13113731
[2017-05-09] VITALS (7 sets, daily range): BP systolic 108–133; BP diastolic 66–81
[2017-05-09 06:11] LABS: HEMATOCRIT 23.6 % (38.0-50.0); MCH 27.3 PG (29.0-34.0); MCHC 32.6 G/DL (30.0-36.0); MCV 83.7 FL (86-99); MEAN PLAT.VOLUME 9.4 uM^3 (9.0-12.4); PLATELET COUNT 365 K/uL (156-360); RBC DIS.WIDTH-CV 14.2 % (11.8-14.6); RBC DIS.WIDTH-SD 43.7 % (39-53); RED BLOOD COUNT 2.82 M/uL (4.00-5.50); WHITE BLOOD COUNT 13.1 K/uL (4.1-10.2)
[2017-05-09 06:36] LABS: ANION GAP 9 MEQ/L (2-14); CHLORIDE 106 MEQ/L (99-109); GFR ESTIMATE (CALCULATED) 52 mL/min/; GLUCOSE 159 mg/dL (70-99); MAGNESIUM 1.4 mg/dl (1.3-2.7); POTASSIUM 3.8 MEQ/L (3.7-5.4); SAMPLE HEMOLYSIS CHECK 0; SAMPLE ICTERIC CHECK 0; SAMPLE LIPEMIA CHECK 0; SODIUM 137 MEQ/L (136-147); TOTAL BILIRUBIN 0.7 MG/DL (0.0-1.0); UREA NITROGEN (BUN) 23 mg/dL (9-23)
[2017-05-09 06:37] LABS: ALKALINE PHOSPHATASE 113 IU/L (3-129)
[2017-05-09 08:14] LABS: ABS NEUTROPHIL COUNT 10.9; ANISOCYTOSIS 1+; EOSINOPHIL ABS CT 0.1; HYPOCHROMASIA 1+; INSTRUMENT ABS NEUTROPHIL CT 9.1 K/uL; PLAT.SUFFICIENCY ADEQUATE
[2017-05-09 11:27] LABS: POINT-OF-CARE METER ID UU14208751
[2017-05-09 16:55] LABS: POINT-OF-CARE METER ID UU14117124
[2017-05-10 03:52] VITALS: BP 124/77
[2017-05-10 06:44] LABS: HEMATOCRIT 26.3 % (38.0-50.0); MCH 26.9 PG (29.0-34.0); MCHC 31.6 G/DL (30.0-36.0); MCV 85.1 FL (86-99); MEAN PLAT.VOLUME 9.5 uM^3 (9.0-12.4); RBC DIS.WIDTH-CV 14.6 % (11.8-14.6); RBC DIS.WIDTH-SD 45.3 % (39-53); RED BLOOD COUNT 3.09 M/uL (4.00-5.50); WHITE BLOOD COUNT 14.6 K/uL (4.1-10.2)
[2017-05-10 07:00] LABS: ALKALINE PHOSPHATASE 101 IU/L (3-129); ANION GAP 11 MEQ/L (2-14); CHLORIDE 105 MEQ/L (99-109); GFR ESTIMATE (CALCULATED) 56 mL/min/; GLUCOSE 160 mg/dL (70-99); MAGNESIUM 1.5 mg/dl (1.3-2.7); POTASSIUM 3.8 MEQ/L (3.7-5.4); SAMPLE HEMOLYSIS CHECK 0; SAMPLE ICTERIC CHECK 0; SAMPLE LIPEMIA CHECK 0; SODIUM 137 MEQ/L (136-147); TOTAL BILIRUBIN 0.6 MG/DL (0.0-1.0); UREA NITROGEN (BUN) 18 mg/dL (9-23)
[2017-05-10 07:35] VITALS: BP 119/72
[2017-05-10 07:40] LABS: PLATELET COUNT 483 K/uL (156-360)
[2017-05-10 08:26] LABS: ABS NEUTROPHIL COUNT 11.1; ANISOCYTOSIS 1+; EOSINOPHIL ABS CT 0.1; HYPOCHROMASIA 1+; INSTRUMENT ABS NEUTROPHIL CT 9.5 K/uL; PLAT.SUFFICIENCY INCREASED
[2017-05-10 11:18] VITALS: BP 106/71
[2017-05-10 12:09] VITALS: BP 141/61
[2017-05-10 15:51] VITALS: BP 118/72
[2017-05-10 20:32] VITALS: BP 129/84
[2017-05-11] VITALS (7 sets, daily range): BP systolic 109–138; BP diastolic 69–85
[2017-05-11 05:58] LABS: POINT-OF-CARE METER ID UU14208753
[2017-05-11 10:10] LABS: HEMATOCRIT 26.9 % (38.0-50.0); MCH 27.2 PG (29.0-34.0); MCHC 31.6 G/DL (30.0-36.0); MCV 85.9 FL (86-99); MEAN PLAT.VOLUME 9.3 uM^3 (9.0-12.4); PLATELET COUNT 605 K/uL (156-360); RBC DIS.WIDTH-CV 14.8 % (11.8-14.6); RBC DIS.WIDTH-SD 46.4 % (39-53); RED BLOOD COUNT 3.13 M/uL (4.00-5.50)
[2017-05-11 13:34] LABS: ALKALINE PHOSPHATASE 89 IU/L (3-129); ANION GAP 9 MEQ/L (2-14); CHLORIDE 102 MEQ/L (99-109); GFR ESTIMATE (CALCULATED) > 59 mL/min/; GLUCOSE 167 mg/dL (70-99); MAGNESIUM 1.6 mg/dl (1.3-2.7); POTASSIUM 3.7 MEQ/L (3.7-5.4); SAMPLE HEMOLYSIS CHECK 0; SAMPLE ICTERIC CHECK 0; SAMPLE LIPEMIA CHECK 0; SODIUM 136 MEQ/L (136-147); TOTAL BILIRUBIN 0.5 MG/DL (0.0-1.0); UREA NITROGEN (BUN) 15 mg/dL (9-23)
[2017-05-11 21:54] LABS: POINT-OF-CARE METER ID UU14208753
[2017-05-12 03:59] VITALS: BP 140/86
[2017-05-12 06:20] LABS: POINT-OF-CARE METER ID UU14208753
[2017-05-12 08:02] LABS: INTER. NORMALIZED RATIO 1.2; PROTHROMBIN TIME 13.8 SEC (10.2-12.9)
[2017-05-12 08:05] LABS: PTT 28.5 SEC (25-37)
[2017-05-12 08:46] VITALS: BP 135/80
[2017-05-12 11:25] LABS: POINT-OF-CARE METER ID UU14117124
[2017-05-12 11:56] VITALS: BP 117/67
[2017-05-12 13:07] LABS: HEMATOCRIT 26.1 % (38.0-50.0); MCH 27.2 PG (29.0-34.0); MCHC 31.4 G/DL (30.0-36.0); MCV 86.7 FL (86-99); MEAN PLAT.VOLUME 9.1 uM^3 (9.0-12.4); PLATELET COUNT 668 K/uL (156-360); RBC DIS.WIDTH-CV 14.9 % (11.8-14.6); RBC DIS.WIDTH-SD 47.5 % (39-53); RED BLOOD COUNT 3.01 M/uL (4.00-5.50)
[2017-05-12 13:25] LABS: ALKALINE PHOSPHATASE 80 IU/L (3-129); ANION GAP 7 MEQ/L (2-14); CHLORIDE 103 MEQ/L (99-109); GFR ESTIMATE (CALCULATED) > 59 mL/min/; GLUCOSE 164 mg/dL (70-99); MAGNESIUM 1.5 mg/dl (1.3-2.7); POTASSIUM 3.6 MEQ/L (3.7-5.4); SAMPLE HEMOLYSIS CHECK 0; SAMPLE ICTERIC CHECK 0; SAMPLE LIPEMIA CHECK 0; SODIUM 137 MEQ/L (136-147); TOTAL BILIRUBIN 0.4 MG/DL (0.0-1.0); UREA NITROGEN (BUN) 13 mg/dL (9-23)
[2017-05-12 13:30] LABS: ABS NEUTROPHIL COUNT 13.7; BASOPHILS 0.9 %; EOSINOPHIL ABS CT 0; LYMPHOCYTES 5.2 % (15.0-45.0); PLAT.SUFFICIENCY INCREASED; SMUDGE CELLS 1.7
[2017-05-12 13:34] LABS: SEG.NEUTROPHILS 91.3 % (46.0-76.0)
[2017-05-12 15:58] VITALS: BP 115/58
[2017-05-12 17:04] LABS: POINT-OF-CARE METER ID UU14117124
[2017-05-12 19:30] VITALS: BP 111/79
[2017-05-12 23:49] VITALS: BP 125/72
[2017-05-13 03:40] VITALS: BP 127/77
[2017-05-13 06:52] LABS: POINT-OF-CARE METER ID UU14188577
[2017-05-13 10:20] LABS: EOSINOPHIL (%) 0.7 % (0-5); EOSINOPHIL COUNT 0.1 K/uL (0-0.3); HEMATOCRIT 24.7 % (38.0-50.0); IMMATURE GRANULOCYTE COUNT 0.8 K/uL; INSTRUMENT ABS NEUTROPHIL CT 12.6 K/uL; LYMPHOCYTE COUNT 1.3 K/uL (1.0-2.8); MCH 28.1 PG (29.0-34.0); MCHC 32.4 G/DL (30.0-36.0); MCV 86.7 FL (86-99); MONOCYTE (%) 6.9 % (3-12); MONOCYTE COUNT 1.1 K/uL (0-0.8); NEUTROPHIL COUNT 12.6 K/uL (1.8-6.4); PLATELET COUNT 668 K/uL (156-360); RED BLOOD COUNT 2.85 M/uL (4.00-5.50)
[2017-05-13 10:38] LABS: ANION GAP 8 MEQ/L (2-14); CHLORIDE 103 MEQ/L (99-109); MAGNESIUM 1.5 mg/dl (1.3-2.7); POTASSIUM 3.1 MEQ/L (3.7-5.4); SAMPLE HEMOLYSIS CHECK 0; SAMPLE ICTERIC CHECK 0; SAMPLE LIPEMIA CHECK 0; SODIUM 137 MEQ/L (136-147)
[2017-05-13 10:44] LABS: GFR ESTIMATE (CALCULATED) > 59 mL/min/; GLUCOSE 191 mg/dL (70-99); UREA NITROGEN (BUN) 12 mg/dL (9-23)
[2017-05-13 11:02] LABS: POINT-OF-CARE METER ID UU14188577
[2017-05-13 15:32] VITALS: BP 109/66
[2017-05-13 16:13] LABS: POINT-OF-CARE METER ID UU14117124
[2017-05-13 19:38] VITALS: BP 131/77
[2017-05-13 21:44] LABS: POINT-OF-CARE METER ID UU14117124
[2017-05-13 23:24] VITALS: BP 135/80
[2017-05-14 04:10] VITALS: BP 128/81
[2017-05-14 06:37] LABS: POINT-OF-CARE METER ID UU14188577
[2017-05-14 07:55] VITALS: BP 124/84
[2017-05-14 08:42] LABS: EOSINOPHIL COUNT 0.1 K/uL (0-0.3); HEMATOCRIT 24.2 % (38.0-50.0); IMMATURE GRANULOCYTE (%) 3.7 % (0.0-0.7); IMMATURE GRANULOCYTE COUNT 0.5 K/uL; INSTRUMENT ABS NEUTROPHIL CT 10.6 K/uL; LYMPHOCYTE COUNT 1.1 K/uL (1.0-2.8); MCHC 32.2 G/DL (30.0-36.0); MCV 86.7 FL (86-99); MEAN PLAT.VOLUME 9.1 uM^3 (9.0-12.4); MONOCYTE (%) 6.8 % (3-12); MONOCYTE COUNT 0.9 K/uL (0-0.8); NEUTROPHIL (%) 79.9 % (45-76); NEUTROPHIL COUNT 10.6 K/uL (1.8-6.4); PLATELET COUNT 713 K/uL (156-360); RBC DIS.WIDTH-CV 14.9 % (11.8-14.6); RED BLOOD COUNT 2.79 M/uL (4.00-5.50); WHITE BLOOD COUNT 13.2 K/uL (4.1-10.2)
[2017-05-14 09:29] LABS: ANION GAP 6 MEQ/L (2-14); CHLORIDE 106 MEQ/L (99-109); GFR ESTIMATE (CALCULATED) > 59 mL/min/; GLUCOSE 154 mg/dL (70-99); MAGNESIUM 1.5 mg/dl (1.3-2.7); SAMPLE HEMOLYSIS CHECK 0; SAMPLE ICTERIC CHECK 0; SAMPLE LIPEMIA CHECK 0; SODIUM 138 MEQ/L (136-147); UREA NITROGEN (BUN) 10 mg/dL (9-23)
[2017-05-14 09:33] LABS: POTASSIUM 4.1 MEQ/L (3.7-5.4)
[2017-05-14 11:19] VITALS: BP 128/81
[2017-05-14 11:32] LABS: POINT-OF-CARE METER ID UU14208753
[2017-05-14] MEDS ORDERED: PERCOCET 5/31 TABLET PO (14:20)
[2017-05-14 15:56] VITALS: BP 114/80
[2017-05-14 19:37] VITALS: BP 143/82
[2017-05-14 21:34] LABS: POINT-OF-CARE METER ID UU14208753
[2017-05-15] VITALS (14 sets, daily range): BP systolic 126–151; BP diastolic 80–94
[2017-05-15 03:50] LABS: CHLORIDE 106 mEq/L (99-109); POTASSIUM 3.5 mEq/L (3.7-5.4); SODIUM 140 mEq/L (136-147)
[2017-05-15 03:51] LABS: HEMATOCRIT 23.8 % (38.0-50.0); MCH 26.7 PG (29.0-34.0); MCHC 31.1 G/DL (30.0-36.0); MCV 85.9 FL (86-99); RBC DIS.WIDTH-SD 47.1 % (39-53); RED BLOOD COUNT 2.77 M/uL (4.00-5.50); WHITE BLOOD COUNT 11.6 K/uL (4.1-10.2)
[2017-05-15 03:52] LABS: GLUCOSE 161 mg/dL (70-99)
[2017-05-15 03:54] LABS: ANION GAP 9 MEQ/L (2-14)
[2017-05-15 03:56] LABS: GFR ESTIMATE (CALCULATED) 56 mL/min/; GFR ESTIMATE (CALCULATED) > 59 mL/min/
[2017-05-15 03:57] LABS: UREA NITROGEN (BUN) 11 mg/dL (9-23)
[2017-05-15 05:01] LABS: VANCOMYCIN, TROUGH 24.9 MCG/ML (10-20)
[2017-05-15 05:20] LABS: EOSINOPHIL (%) 1.3 % (0-5); EOSINOPHIL COUNT 0.2 K/uL (0-0.3); IMMATURE GRANULOCYTE (%) 2.9 % (0.0-0.7); IMMATURE GRANULOCYTE COUNT 0.3 K/uL; INSTRUMENT ABS NEUTROPHIL CT 9.1 K/uL; LYMPHOCYTE COUNT 1.3 K/uL (1.0-2.8); MONOCYTE (%) 6.5 % (3-12); MONOCYTE COUNT 0.8 K/uL (0-0.8); NEUTROPHIL (%) 78.2 % (45-76); NEUTROPHIL COUNT 9.1 K/uL (1.8-6.4); PLAT.SUFFICIENCY ADEQUATE; PLATELET CLUMPS PRESENT - PLATELET COUNT APPEARS ADQ.
[2017-05-15 06:40] LABS: POINT-OF-CARE METER ID UU14208753
[2017-05-15] MEDS ORDERED: LEVAQUIN750 MG PO (07:45)
[2017-05-15 11:35] LABS: POINT-OF-CARE METER ID UU14208753
[2017-05-15 17:17] LABS: POINT-OF-CARE METER ID UU14117124
[2017-05-16 00:03] VITALS: BP 141/96
[2017-05-16 00:21] LABS: HEMATOCRIT 26.2 % (38.0-50.0); MCH 27.7 PG (29.0-34.0); MCHC 32.8 G/DL (30.0-36.0); MCV 84.2 FL (86-99); MEAN PLAT.VOLUME 8.6 uM^3 (9.0-12.4); PLATELET COUNT 666 K/uL (156-360); RBC DIS.WIDTH-CV 14.5 % (11.8-14.6); RBC DIS.WIDTH-SD 44.4 % (39-53); RED BLOOD COUNT 3.11 M/uL (4.00-5.50); WHITE BLOOD COUNT 13.3 K/uL (4.1-10.2)
[2017-05-16 04:24] VITALS: BP 136/90
[2017-05-16 05:33] VITALS: BP 145/93
[2017-05-16 06:03] LABS: HEMATOCRIT 27.2 % (38.0-50.0); MCH 28.2 PG (29.0-34.0); MCHC 33.1 G/DL (30.0-36.0); MCV 85.3 FL (86-99); MEAN PLAT.VOLUME 8.8 uM^3 (9.0-12.4); PLATELET COUNT 650 K/uL (156-360); RBC DIS.WIDTH-CV 14.7 % (11.8-14.6); RBC DIS.WIDTH-SD 45.7 % (39-53); RED BLOOD COUNT 3.19 M/uL (4.00-5.50); WHITE BLOOD COUNT 13.4 K/uL (4.1-10.2)
[2017-05-16 06:23] LABS: POINT-OF-CARE METER ID UU14188577
[2017-05-16 06:27] LABS: ANION GAP 9 MEQ/L (2-14); CHLORIDE 104 MEQ/L (99-109); GFR ESTIMATE (CALCULATED) 56 mL/min/; GLUCOSE 162 mg/dL (70-99); MAGNESIUM 1.5 mg/dl (1.3-2.7); POTASSIUM 3.8 MEQ/L (3.7-5.4); SAMPLE HEMOLYSIS CHECK 0; SAMPLE ICTERIC CHECK 0; SAMPLE LIPEMIA CHECK 0; SODIUM 142 MEQ/L (136-147); UREA NITROGEN (BUN) 11 mg/dL (9-23)
[2017-05-16 08:13] VITALS: BP 132/88
[2017-05-16 11:48] LABS: POINT-OF-CARE METER ID UU14208753
[2017-05-16 11:49] VITALS: BP 138/88
== END 2017-05-16 14:33 | disposition home or self-care (01) | DRG 856 ==
LOC: EME 15:53 → 2SOUTH 21:53 → EDOF 21:53 → 5EAST 21:53 → 4WEST 21:53 → 5EAST 23:42 → ENRESERV 05-03 21:09 → 2SOUTH 05-03 21:10 → ENRESERV 05-03 21:28 → 4WEST 05-03 21:53 → ENRESERV 05-09 12:02 → CANRESERV 05-09 12:02 → ENRESERV 05-09 12:04 → 3EAST 05-09 14:53
PROVIDERS: Anesthesiology; Internal Medicine Critical Care Medicine; Physician Assistant Surgical; Radiology Diagnostic Radiology; Surgery
DX: T81.4XXA Infection following a procedure, initial encounter (principal); T81.32XA Disruption of internal operation (surgical) wound, not elsewhere classified, initial encounter; A41.9 Sepsis, unspecified organism; R65.20 Severe sepsis without septic shock; K63.1 Perforation of intestine (nontraumatic); K65.1 Peritoneal abscess; K55.049 Acute infarction of large intestine, extent unspecified; I12.9 Hypertensive chronic kidney disease with stage 1 through stage 4 chronic kidney disease, or unspecified chronic kidney disease; K91.89 Other postprocedural complications and disorders of digestive system; K56.1 Intussusception; K85.90 Acute pancreatitis without necrosis or infection, unspecified; K86.1 Other chronic pancreatitis; I95.9 Hypotension, unspecified; K57.92 Diverticulitis of intestine, part unspecified, without perforation or abscess without bleeding; E78.5 Hyperlipidemia, unspecified; E87.2 Acidosis; D64.9 Anemia, unspecified; Y83.2 Surgical operation with anastomosis, bypass or graft as the cause of abnormal reaction of the patient, or of later complication, without mention of misadventure at the time of the procedure; E11.9 Type 2 diabetes mellitus without complications; K21.9 Gastro-esophageal reflux disease without esophagitis; E03.9 Hypothyroidism, unspecified; K56.7 Ileus, unspecified; Z98.890 Other specified postprocedural states; Z88.0 Allergy status to penicillin; N18.9 Chronic kidney disease, unspecified; R31.9 Hematuria, unspecified; K66.0 Peritoneal adhesions (postprocedural) (postinfection); Z79.899 Other long term (current) drug therapy; Z79.82 Long term (current) use of aspirin; Z90.49 Acquired absence of other specified parts of digestive tract; Z87.891 Personal history of nicotine dependence
CPT/HCPCS: 36600; 36620; 71010; 71020; 72192; 74176; 74177; 74270; 80048; 80048 91; 80053; 80076; 80202; 81003; 82565; 82803; 82948; 83605; 83690; 83735; 83880; 84100; 84484; 84520; 85014; 85018; 85025; 85027; 85610; 85730; 86900; 86901; 86920; 87040; 87070; 87075; 87077; 87086; 87186; 87205; 87641; 88307; 89190; 93005; 94002; 94799; 97530 GO; 99281; 99285; C9113; J0330; J0610; J0744; J1170; J1335; J1650; J1720; J1815; J1940; J2250; J2405; J2704; J2710; J3010; J3370; J3475; J7030; J7050; J7120; P9016; P9045; P9047; S0030

== ENCOUNTER → 2017-06-07 | Outpatient (CLI) | payer BC ==
[~2017-06-07] VITALS: Ht 190.5 cm; Wt 105.0 kg
[~2017-06-07] MED LIST changes: +BENZONATATE100 MG PO; +IRON325 M1 PO; +LEVAQUIN750 MG PO; +MIRALAX17 GM PO; +PERCOCET 5/31 TABLET PO; +VENTOLIN HFA18 GM IH
[2017-06-07 15:58] LABS: TYPE OF FLUID PLEURAL
[2017-06-07 16:28] LABS: BODY FLUID LDH 263 IU/L; BODY FLUID PROTEIN 5.9 G/DL
[2017-06-07 17:23] LABS: BODY FLUID EOSINOPHILS 16 % (0-25); BODY FLUID RBC'S 6000 /MM^3 (0-100); BODY FLUID WBC'S 1545 /MM^3 (0-500); MONONUCLEAR WBC'S 77 %; POLYNUCLEAR WBC'S 7 % (0-25)
== END | disposition home or self-care (01) ==
LOC: OPR 12:10 → EDSTATUS 12:30 → OPR 12:30
PROVIDERS: Radiology Diagnostic Radiology
PROC: 0B9P3ZZ Drainage of Left Pleura, Percutaneous Approach (ICD-10-PCS; principal; 2017-06-07)
PROC: 079P30Z Drainage of Spleen with Drainage Device, Percutaneous Approach (ICD-10-PCS; principal; 2017-06-07)
DX: D73.3 Abscess of spleen (principal); J90 Pleural effusion, not elsewhere classified
CPT/HCPCS: 32555; 49405; 82945; 83615 91; 84157; 87075; 87116; 87205; 87206; 88108; 88305; 89051; C1769; J3010

== ENCOUNTER → 2017-06-09 | Outpatient (CLI) | payer BC ==
[~2017-06-09] VITALS: Ht 190.5 cm; Wt 106.0 kg
[2017-06-09] VITALS (7 sets, daily range): BP systolic 110–136; BP diastolic 75–92
== END | disposition home or self-care (01) ==
LOC: IVINF 09:18
DX: E61.1 Iron deficiency (principal); T81.89XD Other complications of procedures, not elsewhere classified, subsequent encounter
CPT/HCPCS: 36415; 36430; 86850; 86900; 86901; 86920; 86999; P9016

== ENCOUNTER → 2017-07-05 | Outpatient (CLI) | payer BC | END | disposition home or self-care (01) | LOC: RAD 12:36 | PROC: 0FP430Z Removal of Drainage Device from Gallbladder, Percutaneous Approach (ICD-10-PCS; principal; 2017-07-05) | DX: K86.89 Other specified diseases of pancreas (principal); Z90.49 Acquired absence of other specified parts of digestive tract; T81.4XXA Infection following a procedure, initial encounter | CPT/HCPCS: 74150 ==

== ENCOUNTER 2017-10-20 09:13 | Inpatient (IN) | payer BC ==
[~2017-10-20] VITALS: Ht 160 cm; Wt 115.6 kg
[~2017-10-20 09:13] MED LIST changes: +BEVESPI AEROS10.7 GM IH
[2017-10-28] MEDS ORDERED: ZYRTEC10 M3 PO (09:35)
[2017-10-28] MEDS ORDERED: TYLENOL EXTRA500 MG PO (09:36)
[2017-10-28] MEDS ORDERED: FLAGYL500 MG PO (09:39)
[2017-11-01] MEDS ORDERED: NEOMYCIN SULFA500 MG PO (05:52)
[2017-11-01 06:07] VITALS: BP 128/88
[2017-11-01 18:39] VITALS: BP 116/63
[2017-11-01 19:55] VITALS: BP 109/73
[2017-11-01 23:31] VITALS: BP 102/55
[2017-11-02] VITALS (9 sets, daily range): BP systolic 84–111; BP diastolic 49–74
[2017-11-02 07:07] LABS: BASOPHIL (%) 0.1 % (0-1); EOSINOPHIL (%) 0 % (0-5); HEMATOCRIT 28.9 % (38.0-50.0); IMMATURE GRANULOCYTE (%) 0.5 % (0.0-0.7); LYMPHOCYTE (%) 7.8 % (15-42); LYMPHOCYTE COUNT 0.9 K/uL (1.0-2.8); MCH 29.3 PG (29.0-34.0); MCHC 33.2 G/DL (30.0-36.0); MCV 88.1 FL (86-99); MONOCYTE (%) 9.7 % (3-12); MONOCYTE COUNT 1.1 K/uL (0-0.8); NEUTROPHIL (%) 81.9 % (45-76); PLATELET COUNT 217 K/uL (156-360); RBC DIS.WIDTH-CV 13.9 % (11.8-14.6); RBC DIS.WIDTH-SD 44.6 % (39-53)
[2017-11-02 07:16] LABS: HEMOGLOBIN 9.6 G/DL (12.5-16.6); RED BLOOD COUNT 3.28 M/uL (4.00-5.50)
[2017-11-02 07:32] LABS: ALBUMIN 3.2 G/DL (3.2-4.8); ALKALINE PHOSPHATASE 39 IU/L (3-129); ALT (GPT) 14 IU/L (3-49); AST (GOT) 14 IU/L (2-34); CHLORIDE 105 MEQ/L (99-109); CREATININE 1.6 MG/DL (0.6-1.3); GFR ESTIMATE (CALCULATED) 48 mL/min/ (58.99-99999); GLUCOSE 145 mg/dL (70-99); MAGNESIUM 1.8 mg/dl (1.3-2.7); PHOSPHORUS 2.8 mg/dL (2.5-4.9); POTASSIUM 4.4 MEQ/L (3.7-5.4); SODIUM 138 MEQ/L (136-147); TOTAL BILIRUBIN 0.6 MG/DL (0.0-1.0); TOTAL PROTEIN 5.9 G/DL (6.4-8.3); UREA NITROGEN (BUN) 25 mg/dL (9-23)
[2017-11-03 03:48] VITALS: BP 111/73
[2017-11-03 06:21] LABS: HEMATOCRIT 27.3 % (38.0-50.0); MCH 29.4 PG (29.0-34.0); MCV 89.2 FL (86-99); PLATELET COUNT 217 K/uL (156-360); RBC DIS.WIDTH-CV 14.4 % (11.8-14.6); RBC DIS.WIDTH-SD 46.5 % (39-53); RED BLOOD COUNT 3.06 M/uL (4.00-5.50)
[2017-11-03 06:29] LABS: ALBUMIN 3.1 G/DL (3.2-4.8); ALKALINE PHOSPHATASE 38 IU/L (3-129); ALT (GPT) 14 IU/L (3-49); AST (GOT) 16 IU/L (2-34); CHLORIDE 104 MEQ/L (99-109); CREATININE 1.4 MG/DL (0.6-1.3); GFR ESTIMATE (CALCULATED) 56 mL/min/ (58.99-99999); GLUCOSE 137 mg/dL (70-99); PHOSPHORUS 1.9 mg/dL (2.5-4.9); POTASSIUM 4.2 MEQ/L (3.7-5.4); SODIUM 136 MEQ/L (136-147); TOTAL BILIRUBIN 0.5 MG/DL (0.0-1.0); TOTAL PROTEIN 6.2 G/DL (6.4-8.3); UREA NITROGEN (BUN) 21 mg/dL (9-23)
[2017-11-03 07:59] VITALS: BP 130/84
[2017-11-03 11:26] VITALS: BP 126/79
[2017-11-03 16:05] VITALS: BP 115/71
[2017-11-03 19:32] VITALS: BP 143/91
[2017-11-03 22:29] VITALS: BP 146/82
[2017-11-04 04:06] VITALS: BP 114/70
[2017-11-04 04:55] VITALS: BP 119/78
[2017-11-04 05:33] LABS: HEMATOCRIT 26.8 % (38.0-50.0); HEMOGLOBIN 8.9 G/DL (12.5-16.6); MCH 29.4 PG (29.0-34.0); MCHC 33.2 G/DL (30.0-36.0); MCV 88.4 FL (86-99); PLATELET COUNT 218 K/uL (156-360); RBC DIS.WIDTH-CV 13.9 % (11.8-14.6); RED BLOOD COUNT 3.03 M/uL (4.00-5.50); WHITE BLOOD COUNT 9.8 K/uL (4.1-10.2)
[2017-11-04 05:58] LABS: ALKALINE PHOSPHATASE 42 IU/L (3-129); ALT (GPT) 13 IU/L (3-49); AST (GOT) 14 IU/L (2-34); CHLORIDE 105 MEQ/L (99-109); CREATININE 1.7 MG/DL (0.6-1.3); GFR ESTIMATE (CALCULATED) 45 mL/min/ (58.99-99999); GLUCOSE 118 mg/dL (70-99); POTASSIUM 3.9 MEQ/L (3.7-5.4); SODIUM 138 MEQ/L (136-147); TOTAL BILIRUBIN 0.5 MG/DL (0.0-1.0); TOTAL PROTEIN 6.4 G/DL (6.4-8.3); UREA NITROGEN (BUN) 20 mg/dL (9-23)
[2017-11-04 07:54] VITALS: BP 125/82
[2017-11-04] MEDS ORDERED: TRAMADOL HCL50 MG PO (11:30)
[2017-11-04 11:39] VITALS: BP 129/82
== END 2017-11-04 13:17 | disposition home health service (06) | DRG 330 ==
LOC: 2SOUTH 09:13 → ENRESERV 10-31 21:53 → 2SOUTH 11-01 05:10 → ENRESERV 11-01 16:26 → 3EAST 11-01 17:40
PROVIDERS: Physician Assistant Surgical; Surgery
DX: Z43.3 Encounter for attention to colostomy (principal); K43.5 Parastomal hernia without obstruction or gangrene; K66.0 Peritoneal adhesions (postprocedural) (postinfection); I12.9 Hypertensive chronic kidney disease with stage 1 through stage 4 chronic kidney disease, or unspecified chronic kidney disease; E11.22 Type 2 diabetes mellitus with diabetic chronic kidney disease; N18.3 Chronic kidney disease, stage 3 (moderate); E66.9 Obesity, unspecified; Z68.42 Body mass index [BMI] 45.0-49.9, adult; J44.9 Chronic obstructive pulmonary disease, unspecified; K21.9 Gastro-esophageal reflux disease without esophagitis; M10.9 Gout, unspecified; E78.5 Hyperlipidemia, unspecified; E03.9 Hypothyroidism, unspecified; Z87.19 Personal history of other diseases of the digestive system; Z87.891 Personal history of nicotine dependence
CPT/HCPCS: 80053; 82948; 83735; 84100; 85025; 85027; 88302; 88304; 88305; 88331; 94799; J0330; J1100; J1170; J1335; J1650; J1815; J2001; J2250; J2270; J2405; J2710; J2795; J3010; J3475; J7120; Q0175; S0074